=== PATIENT | female | born 1950 | race Caucasian/White ===

== ENCOUNTER 2019-12-28 13:24 | Emergency (ER) | payer BC, MEDICAID ==
[~2019-12-28] VITALS: Ht 162.6 cm; Wt 84.8 kg
[2019-12-28 13:31] VITALS: Ht 162.6 cm; Wt 84.8 kg
[2019-12-28 14:20] VITALS: BP 173/85
== END 2019-12-28 14:20 | disposition home or self-care (01) ==
LOC: ED 13:24
DX: R51 Headache (principal); I10 Essential (primary) hypertension